=== PATIENT | male | born 1945 | race Caucasian/White ===

== ENCOUNTER 2017-01-16 08:00 | Inpatient (IN) | payer MEDICARE ==
[~2017-01-16] VITALS: Ht 180 cm; Wt 91.0 kg
[2017-01-16 09:50] LABS: INR 0.99 (0.9-1.2); PROTHROMBIN TIME 12.7 SECONDS (11.7-14.0); PTT 32.3 SECONDS (23.2-31.4)
--- NOTE | 2017-01-17 03:44 | NUR ---
@ 0130 WENT IN TO OFFER PAIN MEDICATION, PT SLEEPING. SAID SHE DOSN'T WANT TO WAKE HIM UP AFTER HIS HARD NIGHT. THIS NURSE INFORMED HER THAT HE COULD HAVE PAIN MEDICATION AT ANYTIME NOW. SAID SHE WOULD WAIT UNTIL HE AWAKENS AND CALL FOR PAIN MEDS.
[2017-01-17 05:40] LABS: HCT 32.3 % (42.0-52.0); HGB 10.7 g/dl (13.2-18.0); MCHC 33.1 g/dL (32.0-36.0); MCV 96.7 fL (78.0-100.0); MPV 10.6 fL (6.0-9.5); RBC 3.34 M/uL (4.70-6.00); RDW 13.1 % (11.5-14.0); WBC 7.1 K/uL (4.0-10.5)
[2017-01-17 05:53] LABS: INR 1.46 (0.9-1.2); PROTHROMBIN TIME 17.2 SECONDS (11.7-14.0)
[2017-01-17 06:04] LABS: CREATININE 1.4 mg/dL (0.7-1.2); POTASSIUM 4.9 mmol/L (3.5-5.1)
[2017-01-18 02:20] LABS: BILIRUBIN NEGATIVE (NEGATIVE); BLOOD NEGATIVE Ery/uL (NEGATIVE); CLARITY CLEAR (CLEAR); COLOR YELLOW (YELLOW); GLUCOSE (U) NORMAL (NORMAL); KETONE (U) TRACE mg/dL (NEGATIVE); LEUKOCYTES NEGATIVE Leu/uL (NEGATIVE); NITRITE NEGATIVE (NEGATIVE); PROTEIN NEGATIVE (NEGATIVE); UROBILINOGEN 0.2 mg/dL (0.2-1.0)
[2017-01-18 05:16] LABS: HCT 26.8 % (42.0-52.0); HGB 8.8 g/dl (13.2-18.0); MCHC 32.8 g/dL (32.0-36.0); MCV 97.5 fL (78.0-100.0); MPV 10.2 fL (6.0-9.5); RBC 2.75 M/uL (4.70-6.00); RDW 12.7 % (11.5-14.0); WBC 7.8 K/uL (4.0-10.5)
[2017-01-18 05:34] LABS: CREATININE 1.7 mg/dL (0.7-1.2); POTASSIUM 4.3 mmol/L (3.5-5.1)
[2017-01-18 15:55] LABS: URINE CREATININE 73.6 mg/dL (40-278)
[2017-01-18 18:14] LABS: BILIRUBIN NEGATIVE (NEGATIVE); BLOOD 1+ Ery/uL (NEGATIVE); CLARITY CLEAR (CLEAR); COLOR YELLOW (YELLOW); GLUCOSE (U) NORMAL (NORMAL); KETONE (U) NEGATIVE (NEGATIVE); LEUKOCYTES NEGATIVE Leu/uL (NEGATIVE); NITRITE NEGATIVE (NEGATIVE); PROTEIN NEGATIVE (NEGATIVE); SPECIFIC GRAVITY 1.015 (1.001-1.030); pH 5.5 (5.0-9.0)
[2017-01-18 18:19] LABS: BACTERIA TRACE; SQUAMOUS EPITHELIAL CELLS RARE
[2017-01-19 06:39] LABS: HCT 26.6 % (42.0-52.0); HGB 8.7 g/dl (13.2-18.0); MCHC 32.7 g/dL (32.0-36.0); MCV 97.8 fL (78.0-100.0); MPV 10.7 fL (6.0-9.5); RBC 2.72 M/uL (4.70-6.00); RDW 12.6 % (11.5-14.0)
[2017-01-19 07:06] LABS: CREATININE 1.3 mg/dL (0.7-1.2); POTASSIUM 4.2 mmol/L (3.5-5.1)
[2017-01-19] MEDS ORDERED: ACETAMINOPHEN325 MG PO (14:05)
[2017-01-19] MEDS ORDERED: XARELTO20 MG PO (14:06)
[2017-01-19] MEDS ORDERED: CERTAGEN1 EACH PO (14:06)
[2017-01-19] MEDS ORDERED: SEROQUEL 25MG T25 MG PO ×2 (14:06→14:07)
[2017-01-19] MEDS ORDERED: FEOSOL325 MG PO (14:06)
[2017-01-19] MEDS ORDERED: MIRAPEX0.25 MG PO (14:07)
[2017-01-19] MEDS ORDERED: KLONOPIN0.5 MG PO (14:07)
[2017-01-19] MEDS ORDERED: MIRAPEX1 MG PO (14:07)
[2017-01-19] MEDS ORDERED: PROTONIX 40MG T40 MG PO (14:08)
[2017-01-19] MEDS ORDERED: NAMENDA 10MG TA10 MG PO (14:08)
[2017-01-19] MEDS ORDERED: NUPLAZID17 MG PO (14:08)
[2017-01-19] MEDS ORDERED: SINEMET 25-1001 EAC1 PO (14:08)
[2017-01-19] MEDS ORDERED: PERCOCET 5/3251 TAB PO (14:09)
== END 2017-01-19 17:30 | DRG 469 ==
LOC: FMS 08:00
PROVIDERS: ADMIT Legal Medicine
PROC: 8E0YXBZ Computer Assisted Procedure of Lower Extremity (ICD-10-PCS; 2017-01-16)
PROC: 0SRC0J9 Replacement of Right Knee Joint with Synthetic Substitute, Cemented, Open Approach (ICD-10-PCS; principal; 2017-01-16 10:00)
DX: M17.11 Unilateral primary osteoarthritis, right knee (principal); G93.41 Metabolic encephalopathy; N17.9 Acute kidney failure, unspecified; I95.9 Hypotension, unspecified; D62 Acute posthemorrhagic anemia; G20 Parkinson's disease; F03.90 Unspecified dementia, unspecified severity, without behavioral disturbance, psychotic disturbance, mood disturbance, and anxiety; I10 Essential (primary) hypertension; M19.90 Unspecified osteoarthritis, unspecified site; K21.9 Gastro-esophageal reflux disease without esophagitis; Z86.718 Personal history of other venous thrombosis and embolism; Z22.322 Carrier or suspected carrier of Methicillin resistant Staphylococcus aureus; R41.0 Disorientation, unspecified
CPT/HCPCS: 36415; 71010; 73560; 80048; 81001; 82570; 84300; 85610; 85730; 86850; 86900; 86901; 87088; 87640; 87641; 87900; 88305; 88311; 94010; 94762; 97110; 97116; 97163; 97167; 97530; 97530-GP; 97535; C1713; C1776; J0131; J0697; J1170; J1885; J1956; J2060; J2270; J2405; J2543; J2704; J2795; J3010; J3370